=== PATIENT | female | born 1930 | race Caucasian/White ===

== ENCOUNTER 2019-07-26 09:14 | Outpatient (CLI) | payer OTHER ==
[2019-07-26 09:47] LABS: eGFR (Non-African) > 60
--- NOTE | 2019-08-08 15:46 | Diagnostic Imaging Report ---
YOEL VALENZUELA [facility] [id number] [facility] [address] [id number] Report Submission Date: Jul 26, 2019 10:30:20 AM CDT Patient Study Name: MONTY GARCIA Date: Jul 26, 2019 10:00:52 AM CDT Modality Type: CT\SR Gender: F Description: CT ABD PELVIS W/ CON : [birth year] Institution: [facility] Physician: YOEL VALENZUELA Exam: CT abdomen and pelvis with contrast. History: Hematuria. Axial images through the abdomen and pelvis after IV infusion of 90 cc Omnipaque is submitted along with sagittal and coronal reformatted images. The visualized lower lung ca are clear. No free intraperitoneal air is identified. The gallbladder is partially distended without stones. Numerous small cysts are associated with the liver. The spleen is normal in attenuation and enhancement. The pancreas is also normal in attenuation. The adrenal glands are normal configuration. The abdominal aorta is of normal caliber and is associated with atherosclerotic plaque. No periaortic lymphadenopathy is identified. Both kidneys are normal attenuation without hydronephrosis. The urinary bladder is partially distended. The visualized uterus appears normal in attenuation. No free cul-de-sac fluid is identified. The visualized appendix is of normal configuration. The small bowel is of normal caliber. Air and stool seen throughout the large intestine. Diverticula throughout the colon is noted. No inflammatory changes in the mesentery or ascites is identified. An orthopedic device replaces the left hip joint. Degenerate changes in the lumbar spine are noted. Impression: Small hepatic cyst. No hydronephrosis. The appendix is of normal configuration. Nonspecific bowel gas pattern. Diverticulosis. No inflammatory changes in the mesentery or ascites is identified. Electronically signed on Jul 26, 2019 10:30:20 AM CDT by: Jeramy ARREDONDO
== END 2019-07-26 09:25 ==
LOC: LAB 09:14
PROVIDERS: ATTEND Nurse Practitioner Family
DX: R31.29 Other microscopic hematuria (principal)
CPT/HCPCS: 36415; 74177; 82565; 84520; Q9967